=== PATIENT | male | born 1970 | race Two or more races ===

== ENCOUNTER 2025-03-28 08:03 | Day surgery (SDC) | payer MEDICAID ==
[~2025-03-28] VITALS: Ht 170.2 cm; Wt 96.7 kg
[2025-03-28] VITALS (7 sets, daily range): BP systolic 97–137; BP diastolic 57–84; PULSE 45–47; RESP 13–16; TEMP 97.5; O2SAT 94–97
[~2025-03-28 08:03] MED LIST: SITA100T11 PO; ringers solution, lacted 1,000 ML IV SCH; simethicone 40mg/0.6ml oral drops 15ml PO ONE
[2025-03-28] MEDS ORDERED: fentaNYL/PF 50MCG/1 ML 2ML syringe ONE ×2 (09:52→10:14)
[2025-03-28] MEDS ORDERED: MIDAZolam 1 MG/ML 5ML VIAL ONE ×2 (09:52→10:13)
== END 2025-03-28 11:40 | disposition home or self-care (01) ==
LOC: PRE-OP 08:03
PROVIDERS: ATTEND Internal Medicine Gastroenterology
DX: Z12.11 Encounter for screening for malignant neoplasm of colon (principal); K57.30 Diverticulosis of large intestine without perforation or abscess without bleeding; K62.1 Rectal polyp; D12.4 Benign neoplasm of descending colon; E11.9 Type 2 diabetes mellitus without complications; E78.5 Hyperlipidemia, unspecified; Z79.84 Long term (current) use of oral hypoglycemic drugs; Z79.899 Other long term (current) drug therapy; Z90.49 Acquired absence of other specified parts of digestive tract
CPT/HCPCS: 45385; 82948; 99152; 99153; J2250; J3010; J7120; Z7512; A4620

== ENCOUNTER 2025-05-02 21:19 | Emergency (ER) | payer MEDICAID ==
[~2025-05-02] VITALS: Ht 170.2 cm; Wt 98.1 kg
[~2025-05-02 21:19] MED LIST changes: -ringers solution, lacted 1,000 ML IV SCH; -simethicone 40mg/0.6ml oral drops 15ml PO ONE
[2025-05-02 22:11] LABS: MEAN PLATELET VOLUME 10.3 FL (7.4-10.4); RED CELL DISTRIBUTION WIDTH 14.2 % (11.5-14.5)
[2025-05-02 22:23] LABS: CREATININE 0.88 MG/DL (0.60-1.10); TOTAL CARBON DIOXIDE 26.3 MMOL/L (24-32); eCRCL 91 ML/MIN; eGFR > 90 ML/MIN
--- NOTE | 2025-05-03 02:09 | Physician Documentation ---
History of Present Illness ~ Chief Complaint: Hyperglycemia Stated Complaint: HEADACHE Time Seen by MD: 02:02 HPI Patient presents to the emergency room with chief complaint of hyperglycemia. Patient has known diabetes and takes metformin for this. He states he has been compliant with his medication for which she takes 1000 mg after dinner. No fevers. Patient does endorse mild cough over the last 2-3 days. He had denies any dysuria or abdominal pain. Medication Reconciliation Allergies: Coded Allergies: No Known Allergies (Unverified , 03/27/25) Scheduled Sitagliptin Phosphate (Januvia), 100 MG PO DAILY, (Reported) Review of Systems ROS All review of systems negative except as per HPI Physical Exam Vital Signs: Temperature: 97.4, Source: Temporal, Heart Rate: 54, Respiratory Rate: 15, BP: 128/85, Pulse Oximetry: 99, Weight: 98.100 Oxygen Flow Rate: 0 Physical Exam General: Patient is awake, alert, oriented x4 in no acute distress and well appearing.~ Head: Normocephalic and atraumatic. Eyes: Conjunctival normal. EOMI. PERRL. ENT: Mucous membranes moist. Neck: Supple, trachea is midline. Chest: Clear to auscultation bilaterally without rales, rhonchi, or wheezes. There is no accessory muscle use or retractions. Cardiac: RRR without murmurs, gallops, or rubs. Abd: Soft, nondistended, nontender, with normoactive bowel sounds. No guarding, rebound, or rigidity. Progress Results/Orders Results/Orders Orders - DL GONZALEZ MD Chest,Single View (05/03/25 02:35) Completed Orders - DL GONZALEZ MD Cbc/Diff (05/02/25 21:45) CMP (05/02/25 21:45) Insulin Regular, Human (Humulin R 10 Uni (05/03/25 02:30) Chest,Single View (05/03/25 02:35) Ua W/Microscopic, Cult If Ind (05/03/25 01:37) Medications Received in ER Medications (Trade) Dose Ordered Sig/Jose Route PRN Reason Start Time Stop Time Status Last Admin Dose Admin (HumuLIN R 10 units per 0.1 ML syringe) 5 units ONCE ONCE SQ 05/03/25 02:30 05/03/25 02:31 DC 05/03/25 02:42 5 UNITS Vital Signs 05/02/25 05/03/25 21:41 00:19 Temp 98.0 97.4 Pulse 59 54 Resp 16 15 B/P (MAP) 123/82 128/85 (99) Pulse Ox 97 99 O2 Flow Rate 0 Laboratory Tests Test 05/02/25 21:55 05/03/25 01:37 05/03/25 02:14 White Blood Count 11.1 H Red Blood Count 4.86 Hemoglobin 14.4 Hematocrit 43.2 Mean Corpuscular Volume 88.8 Mean Corpuscular Hemoglobin 29.5 Mean Corpuscular Hemoglobin Concent 33.3 Red Cell Distribution Width 14.2 Platelet Count 315 Mean Platelet Volume 10.3 Neutrophils (%) (Auto) 46.8 Lymphocytes (%) (Auto) 42.6 Monocytes (%) (Auto) 7.3 Eosinophils (%) (Auto) 2.5 Basophils (%) (Auto) 0.8 Neutrophils # (Auto) 5.2 Lymphocytes # (Auto) 4.7 Monocytes # (Auto) 0.8 Eosinophils # (Auto) 0.3 Basophils # (Auto) 0.1 CBC Comment Sodium Level 138 Potassium Level 4.1 Chloride Level 104 Carbon Dioxide Level 26.3 Anion Gap 8 Blood Urea Nitrogen 15 Creatinine 0.88 Estimated GFR/1.73 m2 > 90 BUN/Creatinine Ratio 17.0 Glucose Level 393 H Calcium Level 9.1 Total Bilirubin 0.4 Aspartate Amino Transf (AST/SGOT) 34 Alanine Aminotransferase (ALT/SGPT) 90 H Alkaline Phosphatase 85 Total Protein 8.0 Albumin 3.5 Globulin 4.5 H Albumin/Globulin Ratio 0.8 L Chemistry Comments Urine Specimen Description Cln catch midstream Urine Color Yellow Urine Clarity Clear Urine pH 5.5 Urine Specific [place] 1.025 Urine Protein Negative Urine Glucose (UA) >=1000 H Urine Ketones Trace H Urine Occult Blood Negative Urine Nitrite Negative Urine Bilirubin Negative Urine Urobilinogen 0.2 Urine Leukocyte Esterase Negative Urine RBC 0-2 Urine WBC 0-4 Urine Squamous Epithelial Cells Few Urine Bacteria Few Urine Culture Indicated Not ind Volume Urine Centrifuged 10 ml Urine Comment Glucometer 236 H Medical Decision Making Additional information obtaine: N/A Findings Patient presents to the emergency rooms with concern for hyperglycemia. Differentials include but are not limited to uncontrolled diabetes, diabetic ketoacidosis, hyperosmotic state, infectious process therefore emergent labs and chest x-ray ordered which were reassuring. No evidence of infection. 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 No abdominal tenderness to palpation he had not feel he requires a CT scan. Patient that has established with a doctor and he has been instructed to keep sugar log and to follow up in the meantime he may increase his metformin to an additional tablet a day and return if sugars remain very high or fevers. Differential Dx:Considerations: Include: Appendicitis, Bowel obstruction, Cholecysitis, Dehydration, Diabetes, Diabetic coma, DKA, Electrolyte abnormality, Encephalopathy, Gastritis, Hepatitis, Hyperglycemia, Hyperosmolar state, Hypoglycemia, Pancreatitis, Pyelonephritis, UTI, Other Departure Disposition: 01 HOME / SELF CARE / HOMELESS Impression: Primary Impression: Uncontrolled diabetes mellitus Condition: Stable Discharge Instructions: Hyperglycemia, [id number] Referrals: NO PRIMARY CARE PROVIDER (PCP) Signature Scribe Signature: No scribe Attestation: The note accurately reflects work and decisions made by me.Dl Gonzalez MD 05/03/25 03:13 DL GONZALEZ MD May 03, 2025 02:09
[2025-05-03] MEDS: insulin regular, human 10 units/0.1 ml syringe SQ ONE (02:42)
[2025-05-03 02:48] LABS: LEUKOCYTE ESTERASE ,URINE NEGATIVE (Neg); NITRITES, URINE NEGATIVE (Neg); OCCULT BLOOD,URINE NEGATIVE (Neg)
[2025-05-03 02:49] LABS: UA COLLECTION TYPE CLN CATCH MIDSTREAM
--- NOTE | 2025-05-03 02:52 | RADIOLOGY REPORT ---
CHEST RADIOGRAPH INDICATION: cough TECHNIQUE: Single frontal view of the chest was obtained COMPARISON: None FINDINGS: Lungs and pleural spaces are clear. Cardiac silhouette and tenzin are within normal limits. Bones and soft tissues demonstrate no significant abnormality. IMPRESSION: No acute disease.
[2025-05-03 02:57] LABS: SQUAMOUS EPITHELIAL CELL,UR FEW /LPF (FEW)
[2025-05-03 03:34] VITALS: BP 144/81; PULSE 58; RESP 18; TEMP 98.6; O2SAT 99
== END 2025-05-03 03:35 | disposition home or self-care (01) ==
LOC: ER 21:20
DX: E11.65 Type 2 diabetes mellitus with hyperglycemia (principal); Z79.899 Other long term (current) drug therapy
CPT/HCPCS: 36415; 71045; 80053; 81001; 82948; 85025; 96372; 99284; J1815